=== PATIENT | female | born 1990 | race Caucasian/White ===

== ENCOUNTER 2022-06-28 20:25 | Day surgery (SDC) | payer OTHER ==
[2022-06-28 20:49] VITALS: BMI 25.4
[2022-06-28] MEDS ORDERED: hydrALAZINE 20 MG/ML VIAL SLOW IVP PRN (21:04)
== END 2022-06-29 01:25 | disposition home or self-care (01) ==
LOC: CSHLD/OP 20:25
PROVIDERS: ATTEND Family Medicine
DX: O47.1 False labor at or after 37 completed weeks of gestation (principal); O62.0 Primary inadequate contractions; Z3A.38 38 weeks gestation of pregnancy
CPT/HCPCS: 96372; 99283; J0595

== ENCOUNTER 2022-06-29 11:32 | Day surgery (SDC) | payer OTHER, SELFPAY ==
[2022-06-29 13:55] VITALS: BMI 25.4
[2022-06-29] MEDS ORDERED: hydrALAZINE 20 MG/ML VIAL SLOW IVP PRN (14:32)
== END 2022-06-29 14:06 | disposition home or self-care (01) ==
LOC: CSHLD/OP 11:32
PROVIDERS: ATTEND Family Medicine
DX: O26.853 Spotting complicating pregnancy, third trimester (principal); O47.1 False labor at or after 37 completed weeks of gestation; Z3A.38 38 weeks gestation of pregnancy
CPT/HCPCS: 99283

== ENCOUNTER 2022-07-01 15:12 | Inpatient (IN) | payer MEDICAID, OTHER, SELFPAY ==
[2022-07-05] MEDS ORDERED: Bupivacaine 0.25% HCL 30 ML VIAL ONE (08:00)
[2022-07-05] MEDS ORDERED: Promethazine HCl 25 MG/ML VIAL IM PRN ×3 (08:16→15:46)
[2022-07-05] MEDS ORDERED: HYDROcodone/Acetaminophen 5/325 mg Tablet PO PRN ×2 (08:16→15:46)
[2022-07-05] MEDS ORDERED: Ibuprofen 800 MG TAB PO PRN (08:16)
[2022-07-05] MEDS ORDERED: Misoprostol 200 MCG TAB PR PRN (08:16)
[2022-07-05] MEDS ORDERED: Ondansetron PF 4 MG/2 ML Vial IVP PRN ×3 (08:16→15:46)
[2022-07-05] MEDS ORDERED: Lidocaine 1% (PF) 30 ML VIAL SC PRN (08:16)
[2022-07-05] MEDS ORDERED: Butorphanol Tartrate 1 MG/ML VIAL SLOW IVP PRN (08:16)
[2022-07-05] MEDS ORDERED: Acetaminophen 500 MG TAB PO PRN (08:16)
[2022-07-05] MEDS ORDERED: Diphenoxylate HCl/Atropine Tablet PO PRN (08:16)
[2022-07-05] MEDS ORDERED: Carboprost 250 MCG/ML AMP IM PRN (08:16)
[2022-07-05] MEDS ORDERED: hydrALAZINE 20 MG/ML VIAL SLOW IVP PRN ×2 (08:16→15:46)
[2022-07-05] MEDS ORDERED: Methylergonovine 0.2 MG/ML VIAL IM PRN (08:16)
[2022-07-05] MEDS ORDERED: NS w/ Oxytocin 30 units 500 ML ONE (08:24)
[2022-07-05] MEDS ORDERED: NS w/ Oxytocin 30 units 500 ML IV SCH ×2 (08:30)
[2022-07-05] MEDS ORDERED: Lactated Ringer's 1,000 ML IV SCH (08:30)
[2022-07-05 08:50] VITALS: BMI 25.7
[2022-07-05 09:15] LABS: Mean Corpuscular HGB CONC 34.7 g/dL (32.0-36.0); Mean Corpuscular Hemoglobin 30.7 pg (27.0-33.0); Mean Corpuscular Volume 88.5 fl (81.6-98.3); Mean Platelet Volume 11.5 fl (7.4-10.4); Platelet Count 195 10x3/uL (150-450); RBC Distribution Width 13.1 % (11.5-14.5); Red Blood Cell (RBC) Count 3.91 10x6/uL (3.90-5.03); White Blood Cell (WBC) Count 7.8 10x3/uL (3.5-10.5)
[2022-07-05 09:50] LABS: HBSAg Index 0.22 S/CO (0-0.99); Hep B Surf Ag Non-Reactive S/CO (NonReactive); Syphilis Antibody Nonreactive (Nonreactive); Syphilis Antibody Index 0.04 S/CO (<1.00 Non-Reactive)
[2022-07-05] MEDS ORDERED: Fentanyl 2 mcg/Bup 0.1% Cadd 100 ML ONE (10:31)
[2022-07-05 13:27] LABS: SARS-CoV-2 NAA Rapid Test DETECTED (NotDetected)
[2022-07-05] MEDS ORDERED: ePHEDrine Sulfate 50 MG/10 ML VIAL SLOW IVP PRN (14:15)
[2022-07-05] MEDS ORDERED: Moisturizing Cream (Eucerin) 113 GM JAR TOP PRN (14:15)
[2022-07-05] MEDS ORDERED: Naloxone HCl 0.4 mg/ml Vial IVP PRN ×2 (14:15)
[2022-07-05] MEDS ORDERED: Lactated Ringer's 500 ML IV PRN (14:15)
[2022-07-05] MEDS ORDERED: Fentanyl 2 mcg/Bupivacaine 0.1% Cassette 100 ML EPIDURAL SCH (14:15)
[2022-07-05] MEDS ORDERED: diphenhydrAMINE 50 MG/ML VIAL IVP PRN (14:15)
[2022-07-05] MEDS ORDERED: Acetaminophen 325 MG TAB PO PRN (14:15)
[2022-07-05] MEDS ORDERED: Communication Order-Pharmacy FS SCH (14:15)
[2022-07-05] MEDS ORDERED: Phytonadione Neonatal 1 MG/0.5 ML AMP ONE (14:40)
[2022-07-05] MEDS ORDERED: Erythromycin Base 0.5% Oint 1 GM TUBE ONE (14:41)
[2022-07-05] MEDS ORDERED: Lanolin Ointment 7 GM TUBE TOP PRN (15:46)
[2022-07-05] MEDS ORDERED: Milk Of Magnesia 30 ML UDCUP PO PRN (15:46)
[2022-07-05] MEDS ORDERED: diphenhydrAMINE 25 MG CAP PO PRN (15:46)
[2022-07-05] MEDS ORDERED: Bisacodyl 10 MG SUPP PR PRN (15:46)
[2022-07-05] MEDS: Ferrous Sulfate 325 MG TAB PO SCH (16:45)
[2022-07-05] MEDS: Ibuprofen 800 MG TAB PO SCH (17:21)
[2022-07-05] MEDS: Docusate 100 MG CAP PO SCH (22:10)
[2022-07-06] MEDS: Ibuprofen 800 MG TAB PO SCH ×3 (01:15→18:14)
[2022-07-06] MEDS: Docusate 100 MG CAP PO SCH (08:42)
[2022-07-06] MEDS: Ferrous Sulfate 325 MG TAB PO SCH ×2 (08:43→18:14)
[2022-07-06] MEDS ORDERED: Prenatal Vitamin 1 TAB PO SCH (09:00)
[2022-07-06 17:22] VITALS: BP 115/56; TEMP 98.3
[2022-07-08] MEDS ORDERED: Boostrix 0.5 ML (Tdap) VIAL (>/=7 yrs of age) IM ONE (15:46)
== END 2022-07-06 18:12 | disposition home or self-care (01) | DRG 805 ==
LOC: CSHLD 07-05 07:47 → CSHANTE 07-05 16:00
PROVIDERS: ADMIT Family Medicine; ATTEND Family Medicine
PROC: 10E0XZZ Delivery of Products of Conception, External Approach (ICD-10-PCS; principal; 2022-07-05)
PROC: 10907ZC Drainage of Amniotic Fluid, Therapeutic from Products of Conception, Via Natural or Artificial Opening (ICD-10-PCS; 2022-07-05)
PROC: 3E033VJ Introduction of Other Hormone into Peripheral Vein, Percutaneous Approach (ICD-10-PCS; 2022-07-05)
PROC: 8E0ZXY6 Isolation (ICD-10-PCS; 2022-07-05)
DX: O98.52 Other viral diseases complicating childbirth (principal); U07.1 COVID-19; Z37.0 Single live birth; Z3A.39 39 weeks gestation of pregnancy
CPT/HCPCS: 36415; 51702; 85027; 86780; 86850; 86900; 86901; 87340; J2590; J7120; S0020; U0002